=== PATIENT | male | born 1980 | race Caucasian/White ===

== ENCOUNTER 2022-01-26 14:23 | Emergency (ER) | payer BC ==
[~2022-01-26] VITALS: Wt 75.7 kg
[2022-01-26] MEDS ORDERED: TOPAMAX100 M1 PO (14:55)
[2022-01-26] MEDS ORDERED: XANAX1 MG PO (14:58)
[2022-01-26] MEDS ORDERED: LAMICTAL XR300 M1 PO (14:58)
[2022-01-26] MEDS ORDERED: PREDNISONE50 MG PO (15:00)
== END 2022-01-26 15:34 | disposition home or self-care (01) ==
LOC: ED 14:23
DX: R21 Rash and other nonspecific skin eruption (principal); Z88.8 Allergy status to other drugs, medicaments and biological substances

== ENCOUNTER 2022-03-04 09:19 | Emergency (ER) | payer SELFPAY ==
[~2022-03-04] VITALS: Ht 182.8 cm; Wt 76.7 kg
[~2022-03-04 09:19] MED LIST: LAMICTAL XR300 M1 PO; PREDNISONE50 MG PO; TOPAMAX100 M1 PO; XANAX1 MG PO
[2022-03-04 09:56] LABS: BASO # 0.1 10*3/uL (0.0-0.1); BASO % 1.1 % (0.0-1.0); EOS # 0.1 10*3/uL (0.0-0.4); EOS % 1.5 % (1.0-4.0); HEMATOCRIT 47.9 % (42.0-52.0); LYMPH % 36.5 % (27.0-41.0); MEAN CELL VOLUME 93.4 fl (80.0-94.0); MEAN CORPUSCULAR HGB CONC 34.2 g/dl (33.0-37.0); MONO # 0.4 10*3/uL (0.1-1.0); NEUT # 2.8 10*3/uL (2.3-7.9); NEUT % 51.8 % (47.0-73.0); PLATELET COUNT AUTOMATED 217 10*3/uL (130-400); RED BLOOD COUNT 5.13 10*6/uL (4.50-5.90); RED CELL DISTRI WIDTH 12.3 % (0-14.5); WHITE BLOOD COUNT 5.5 10*3/uL (4.8-10.8)
[2022-03-04 10:11] LABS: ALKALINE PHOSPHATASE 82 U/L (45-117); BUN 13 mg/dl (7-24); CHLORIDE 112 mmol/L (98-107); CREATININE 1.11 mg/dL (0.70-1.30); LIPASE 60 U/L (73-393); POTASSIUM 3.6 mmol/L (3.5-5.1); SGOT/AST 37 IU/L (3-35); SGPT/ALT 38 U/L (12-78); SODIUM 143 mmol/L (136-145); TOTAL PROTEIN 7.6 gm/dL (6.4-8.2)
[2022-03-04 10:53] LABS: ACT PARTIAL THROMBO TIME 23.9 SECONDS (20.0-32.1)
== END 2022-03-04 13:50 | disposition left against medical advice (07) ==
LOC: ED 09:19
PROVIDERS: Emergency Medicine
DX: R56.9 Unspecified convulsions (principal); Z88.8 Allergy status to other drugs, medicaments and biological substances; Z79.899 Other long term (current) drug therapy

== ENCOUNTER 2022-03-04 14:40 | Emergency (ER) | payer SELFPAY ==
[~2022-03-04] VITALS: Wt 63.5 kg
[2022-03-04 15:18] LABS: BASO % 0.3 % (0.0-1.0); EOS % 0.1 % (1.0-4.0); HEMATOCRIT 46.2 % (42.0-52.0); LYMPH # 1.7 10*3/uL (1.3-4.4); LYMPH % 13.7 % (27.0-41.0); MEAN CELL VOLUME 93.9 fl (80.0-94.0); MEAN CORPUSCULAR HGB 32.1 pg (27.0-31.0); MEAN CORPUSCULAR HGB CONC 34.2 g/dl (33.0-37.0); MONO # 0.7 10*3/uL (0.1-1.0); MONO % 5.5 % (3.0-9.0); NEUT # 9.6 10*3/uL (2.3-7.9); NEUT % 79.9 % (47.0-73.0); PLATELET COUNT AUTOMATED 205 10*3/uL (130-400); RED BLOOD COUNT 4.92 10*6/uL (4.50-5.90); RED CELL DISTRI WIDTH 12.6 % (0-14.5); WHITE BLOOD COUNT 12.1 10*3/uL (4.8-10.8)
[2022-03-04 15:30] LABS: ALKALINE PHOSPHATASE 81 U/L (45-117); BUN 13 mg/dl (7-24); CHLORIDE 111 mmol/L (98-107); CREATININE 1.16 mg/dL (0.70-1.30); LIPASE 73 U/L (73-393); POTASSIUM 3.8 mmol/L (3.5-5.1); SGOT/AST 35 IU/L (3-35); SGPT/ALT 37 U/L (12-78); SODIUM 139 mmol/L (136-145); TOTAL PROTEIN 7.3 gm/dL (6.4-8.2)
== END 2022-03-04 19:20 | disposition home or self-care (01) ==
LOC: ED 14:40
PROVIDERS: Emergency Medicine
DX: R56.9 Unspecified convulsions (principal); Z88.8 Allergy status to other drugs, medicaments and biological substances; Z79.899 Other long term (current) drug therapy

== ENCOUNTER → 2022-03-05 | Outpatient (CLI) | payer SELFPAY | END | disposition home or self-care (01) | LOC: RESCLI 15:28 | PROVIDERS: ATTEND Internal Medicine | DX: M54.42 Lumbago with sciatica, left side (principal); G89.29 Other chronic pain; F43.9 Reaction to severe stress, unspecified; G40.909 Epilepsy, unspecified, not intractable, without status epilepticus; M54.9 Dorsalgia, unspecified; F41.9 Anxiety disorder, unspecified; Z79.899 Other long term (current) drug therapy ==

== ENCOUNTER 2022-04-27 11:51 | Emergency (ER) | payer OTHER ==
[~2022-04-27] VITALS: Ht 187.9 cm; Wt 79.4 kg
[2022-04-27 12:46] LABS: BASO % 0.3 % (0.0-1.0); EOS % 0.6 % (1.0-4.0); HEMATOCRIT 43.1 % (42.0-52.0); LYMPH # 1.2 10*3/uL (1.3-4.4); LYMPH % 17.1 % (27.0-41.0); MEAN CELL VOLUME 89.8 fl (80.0-94.0); MEAN CORPUSCULAR HGB 31.9 pg (27.0-31.0); MEAN CORPUSCULAR HGB CONC 35.5 g/dl (33.0-37.0); MEAN PLATELET VOLUME 8.6 fl (9.6-12.3); MONO # 0.6 10*3/uL (0.1-1.0); MONO % 8.1 % (3.0-9.0); NEUT # 5.1 10*3/uL (2.3-7.9); NEUT % 73.6 % (47.0-73.0); PLATELET COUNT AUTOMATED 163 10*3/uL (130-400); RED CELL DISTRI WIDTH 11.6 % (0-14.5)
[2022-04-27 13:04] LABS: ALKALINE PHOSPHATASE 83 U/L (45-117); BUN 8 mg/dl (7-24); CHLORIDE 104 mmol/L (98-107); POTASSIUM 3.7 mmol/L (3.5-5.1); SGOT/AST 59 IU/L (3-35); SGPT/ALT 76 U/L (12-78); SODIUM 132 mmol/L (136-145); TOTAL PROTEIN 7.9 gm/dL (6.4-8.2)
[2022-04-27 13:37] LABS: ACT PARTIAL THROMBO TIME 27.4 SECONDS (20.0-32.1)
== END 2022-04-27 14:45 | disposition short-term general hospital (02) ==
LOC: ED 11:51
PROVIDERS: Emergency Medicine
DX: S06.5X9A Traumatic subdural hemorrhage with loss of consciousness of unspecified duration, initial encounter (principal); S02.19XA Other fracture of base of skull, initial encounter for closed fracture; G40.909 Epilepsy, unspecified, not intractable, without status epilepticus; Z88.8 Allergy status to other drugs, medicaments and biological substances; W18.39XA Other fall on same level, initial encounter; Y93.89 Activity, other specified; Y92.89 Other specified places as the place of occurrence of the external cause; Y99.8 Other external cause status

== ENCOUNTER 2023-03-18 18:34 | Emergency (ER) | payer OTHER ==
[~2023-03-18] VITALS: Ht 187.9 cm; Wt 86.2 kg
[~2023-03-18 18:34] MED LIST changes: +AMOX-CLAV 875-1 EACH PO
== END 2023-03-18 19:24 | disposition home or self-care (01) ==
LOC: ED 18:34
DX: Z48.00 Encounter for change or removal of nonsurgical wound dressing (principal); Z88.8 Allergy status to other drugs, medicaments and biological substances

== ENCOUNTER 2023-05-20 11:12 | Emergency (ER) | payer OTHER ==
[~2023-05-20] VITALS: Ht 187.9 cm; Wt 86.2 kg
[2023-05-20] MEDS ORDERED: ZANAFLEX4 MG PO (15:51)
[2023-05-20] MEDS ORDERED: NAPROSYN500 MG PO (15:51)
== END 2023-05-20 16:14 | disposition home or self-care (01) ==
LOC: ED 11:12
DX: M94.0 Chondrocostal junction syndrome [Tietze] (principal); Z88.8 Allergy status to other drugs, medicaments and biological substances

== ENCOUNTER → 2025-01-31 | Outpatient (CLI) | payer OTHER ==
[~2025-01-31] MED LIST changes: +NAPROSYN500 MG PO; +ZANAFLEX4 MG PO
== END | disposition home or self-care (01) ==
LOC: ORTHO 01:23
PROVIDERS: ATTEND Orthopaedic Surgery
DX: S62.366D Nondisplaced fracture of neck of fifth metacarpal bone, right hand, subsequent encounter for fracture with routine healing (principal); M79.89 Other specified soft tissue disorders; X58.XXXD Exposure to other specified factors, subsequent encounter

== ENCOUNTER 2025-03-14 20:26 | Emergency (ER) | payer OTHER ==
[2025-03-14] MEDS ORDERED: NAPROSYN500 MG PO (21:13)
== END 2025-03-14 21:34 | disposition home or self-care (01) ==
LOC: ED 20:26
DX: S52.022A Displaced fracture of olecranon process without intraarticular extension of left ulna, initial encounter for closed fracture (principal); S20.319A Abrasion of unspecified front wall of thorax, initial encounter; Z79.899 Other long term (current) drug therapy; Z88.6 Allergy status to analgesic agent; V89.2XXA Person injured in unspecified motor-vehicle accident, traffic, initial encounter; Y93.89 Activity, other specified; Y92.488 Other paved roadways as the place of occurrence of the external cause; Y99.8 Other external cause status

== ENCOUNTER 2025-05-01 01:43 | Emergency (ER) | payer SELFPAY ==
[~2025-05-01] VITALS: Ht 182.8 cm; Wt 81.6 kg
[2025-05-01 02:06] LABS: BASO # 0.0 10*3/uL (0.0-0.1); BASO % 0.4 % (0.0-1.0); EOS # 0.0 10*3/uL (0.0-0.4); EOS % 0.3 % (1.0-4.0); MEAN CELL VOLUME 91.4 fl (80.0-94.0); MEAN CORPUSCULAR HGB 31.0 pg (27.0-31.0); MEAN PLATELET VOLUME 8.9 fl (9.6-12.3); MONO # 0.7 10*3/uL (0.1-1.0); MONO % 10.2 % (3.0-9.0); NEUT # 3.7 10*3/uL (2.3-7.9); NEUT % 54.0 % (47.0-73.0); NUCLEATED RED BLOOD CELL 0.0 % (0.0-0.0); NUCLEATED RED BLOOD CELL 0.0 10*3/uL (0.0-0.0); PLATELET COUNT AUTOMATED 234 10*3/uL (130-400); RED CELL DISTRI WIDTH 11.5 % (0-14.5)
[2025-05-01 02:26] LABS: BUN 14 mg/dl (9-23)
[2025-05-01] MEDS ORDERED: LORazepam 1 MG TAB PO ONE (02:35)
== END 2025-05-01 04:31 | disposition home or self-care (01) ==
LOC: ED 01:43
PROVIDERS: Internal Medicine
DX: F41.9 Anxiety disorder, unspecified (principal); R07.89 Other chest pain; R20.0 Anesthesia of skin; R20.2 Paresthesia of skin; Z88.8 Allergy status to other drugs, medicaments and biological substances; Z79.899 Other long term (current) drug therapy

== ENCOUNTER 2025-06-04 13:15 | Emergency (ER) | payer MEDICAID ==
[2025-06-04 14:36] LABS: BILIRUBIN Negative (Negative); BLOOD Negative (Negative); CLARITY Turbid (Clear); COLOR Yellow (Yellow); KETONE Trace (Negative); LEUKO ESTERASE Trace (Negative); NITRITE Negative (Negative); PH 7.0 (4.5-8.0); SPECIFIC GRAVITY 1.020 (1.001-1.030); UROBILINOGEN 1.0 E.U./dl (0.0-1.0)
[2025-06-04 14:37] LABS: BASO # 0.1 10*3/uL (0.0-0.1); BASO % 1.1 % (0.0-1.0); EOS # 0.0 10*3/uL (0.0-0.4); EOS % 0.4 % (1.0-4.0); MEAN CELL VOLUME 92.8 fl (80.0-94.0); MEAN CORPUSCULAR HGB 30.5 pg (27.0-31.0); MEAN PLATELET VOLUME 8.7 fl (9.6-12.3); MONO # 0.5 10*3/uL (0.1-1.0); MONO % 11.0 % (3.0-9.0); NEUT # 2.3 10*3/uL (2.3-7.9); NEUT % 49.6 % (47.0-73.0); NUCLEATED RED BLOOD CELL 0.0 % (0.0-0.0); NUCLEATED RED BLOOD CELL 0.0 10*3/uL (0.0-0.0); PLATELET COUNT AUTOMATED 243 10*3/uL (130-400); RED CELL DISTRI WIDTH 11.4 % (0-14.5)
[2025-06-04 14:44] LABS: URINE AMPHETAMINES Negative (1000ng/ml); URINE BARBITURATES Negative (200ng/ml); URINE BENZODIAZEPINES Negative (200ng/ml); URINE CANNABINOIDS (THC) Positive (50ng/ml); URINE COCAINE Negative (300ng/ml); URINE METHADONE Negative (300ng/ml); URINE OPIATES Negative (300ng/ml); URINE PHENCYCLIDINE Negative (25ng/ml)
[2025-06-04 15:07] LABS: BACTERIA 2+
[2025-06-04 15:11] LABS: BUN 12 mg/dl (9-23); CPK 125 U/L (34-171); ETHYL ALCOHOL < 3.0 mg/dl (<3); SGPT/ALT 12 U/L (5-49)
[2025-06-04] MEDS ORDERED: LEVETIRACETAM 250 MG TAB PO SCH (22:00)
[2025-06-04] MEDS ORDERED: LAMOTRIGINE 100 MG TAB PO ONE (22:05)
[2025-06-04] MEDS ORDERED: TOPIRAMATE 100 MG TAB PO ONE (22:05)
[2025-06-04] MEDS ORDERED: ALPRAZolam 0.25 MG TAB PO ONE (22:05)
[2025-06-05] MEDS ORDERED: IBUPROFEN 800 MG TAB PO ONE (09:45)
[2025-06-05] MEDS ORDERED: diazePAM 5 MG TAB PO ONE (15:00)
[2025-06-05] MEDS ORDERED: ALPRAZolam 0.25 MG TAB PO ONE (19:10)
[2025-06-05] MEDS ORDERED: LAMOTRIGINE 100 MG TAB PO ONE (19:15)
[2025-06-06] MEDS ORDERED: TOPIRAMATE 100 MG TAB PO SCH (10:00)
== END 2025-06-06 13:12 ==
LOC: ED 13:15
PROVIDERS: Emergency Medicine
DX: F29 Unspecified psychosis not due to a substance or known physiological condition (principal); Z88.5 Allergy status to narcotic agent

== ENCOUNTER 2025-07-02 14:37 | Emergency (ER) | payer MEDICAID ==
[~2025-07-02] VITALS: Ht 187.9 cm; Wt 70.8 kg
[2025-07-02] MEDS ORDERED: QUETIAPINE FUMA50 M1 PO (15:30)
[2025-07-02] MEDS ORDERED: AVPAK LEVETIRA750 M1 PO (15:31)
[2025-07-02] MEDS ORDERED: PREDNISONE20 M1 PO (16:42)
[2025-07-02] MEDS ORDERED: Water, Sterile 10 ML VIAL ONE (17:03)
== END 2025-07-02 17:25 | disposition home or self-care (01) ==
LOC: ED 14:37
DX: S46.912A Strain of unspecified muscle, fascia and tendon at shoulder and upper arm level, left arm, initial encounter (principal); F41.9 Anxiety disorder, unspecified; Z88.5 Allergy status to narcotic agent; V89.2XXA Person injured in unspecified motor-vehicle accident, traffic, initial encounter; Y93.89 Activity, other specified; Y92.89 Other specified places as the place of occurrence of the external cause; Y99.8 Other external cause status